=== PATIENT | female | born 1990 | race Caucasian/White ===

== ENCOUNTER → 2019-01-27 | Outpatient (CLI) | payer OTHER ==
[~2019-01-27] MED LIST: BIRTH CONTROL PO; KEFLEX500 MG PO; MEDROLDOSEPACK PO; ZOFRAN ODT4 MG PO
== END ==
LOC: M.ULTRA 13:46
DX: N83.202 Unspecified ovarian cyst, left side (principal); K80.80 Other cholelithiasis without obstruction

== ENCOUNTER → 2019-09-09 | Outpatient (CLI) | payer OTHER | LOC: M.ULTRA 11:14 | DX: N60.02 Solitary cyst of left breast (principal); Z80.3 Family history of malignant neoplasm of breast ==

== ENCOUNTER → 2021-03-27 | Outpatient (CLI) | payer OTHER | LOC: M.CT 11:06 | PROVIDERS: ATTEND Family Medicine | DX: R06.02 Shortness of breath (principal); R07.89 Other chest pain ==

== ENCOUNTER → 2021-04-04 | Outpatient (CLI) | payer OTHER ==
[2021-04-06 19:06] LABS: ANA INTERPRETATION Positive (())
== END ==
LOC: M.LAB 12:15
PROVIDERS: ATTEND Registered Nurse
DX: R07.89 Other chest pain (principal); R06.00 Dyspnea, unspecified

== ENCOUNTER 2021-05-09 17:26 | Observation (INO) | payer OTHER ==
[~2021-05-09] VITALS: Ht 172.7 cm; Wt 86.2 kg
[2021-05-09] MEDS ORDERED: TOPROL XL25 MG PO (17:31)
[2021-05-09 20:02] LABS: ABSOLUTE BASOPHILS 0.1 thou/uL (0.0-0.2); ABSOLUTE EOSINOPHILS 0.3 thou/uL (0.0-0.7); ABSOLUTE LYMPHOCYTES 1.7 thou/uL (0.8-5.3); ABSOLUTE MONOCYTES 0.6 thou/uL (0.0-1.2); ABSOLUTE NEUTROPHILS 4.5 thou/uL (1.6-8.1); BASOPHILS 1.1 %; EOSINOPHILS 3.7 %; HEMATOCRIT 34.2 % (37.0-47.0); HEMOGLOBIN 11.1 gm/dL (12.0-15.0); LYMPHOCYTES 24.2 %; MCH 24.5 pg (26.0-34.0); MCHC 32.3 g/dL (28.0-37.0); MCV 75.8 fL (80.0-100.0); MONOCYTES 8.3 %; MPV 7.5 fl. (7.2-11.1); NUCLEATED RBCS 0 /100WBC; PLATELET COUNT* 249 thou/uL (150-400); POLYS 62.7 %; RBC 4.51 mil/uL (4.20-5.00); RDW-CV 15.3 % (10.5-14.5); WBC 7.2 thou/uL (4.0-11.0)
[2021-05-09 20:14] LABS: CALCIUM 8.5 mg/dL (8.5-10.1); CREATININE 0.9 mg/dL (0.6-1.3); POTASSIUM 3.3 mmol/L (3.5-5.1)
[2021-05-09 20:16] LABS: APTT 26.8 Seconds (25.0-31.3); PROTIME 10.5 Seconds (9.20-11.50)
[2021-05-09 20:24] LABS: ALBUMIN 3.8 g/dL (3.4-5.0); TOTAL BILIRUBIN 0.2 mg/dL (<0.1-1.0)
[2021-05-10] VITALS (12 sets, daily range): BP systolic 107–130; BP diastolic 52–72
[2021-05-10 04:01] LABS: CHOLESTEROL 119 mg/dL (<200); HDL CHOLESTEROL 58 mg/dL (>40); LDL CHOLESTEROL 52 mg/dL (<100); TC:HDL 2.1 Ratio (Not establshd); TRIGLYCERIDE 47 mg/dL (<150); VLDL 9 mg/dL (<40)
[2021-05-10 04:03] LABS: SERUM ASSESSMENT CLEAR
--- NOTE | 2021-05-10 11:18 | EKG ---
[place] [address] ELECTROCARDIOGRAM REPORT Name: YUSEF SOLIZ Room: [address]#: [id number] Admission: 05/09/21 Attend Phys: Luis M Nunez, Discharge: Date of : 88 Date of Service: 05/09/21 173 Report #: [id number] THIS REPORT FOR: //name// [facility] ED Test Date: 2021-05-09 Test Time: 17:30:33 Pat Name: YUSEF SOLIZ Department: Room: [facility] Gender: F Administrative Professional: LUZ : 1990 Requested By: Susy Dawn Order Number: [id number] MD: Arjun García Measurements Intervals [place] Rate: 103 P: 83 LA: 157 QRS: 74 QRSD: 74 T: -49 QT: 358 QTc: 469 Interpretive Statements Sinus tachycardia Probable left atrial enlargement Nonspecific T abnormalities, diffuse leads Borderline prolonged QT interval No previous ECG available for comparison Electronically Signed On 05-10-2021 11:17:56 INTERVENTIONAL TECH by Arjun García [email or web address] <ELECTRONICALLY SIGNED> By: Arjun García MD, FAC 05/10/21 1117 1730 1730 Arjun García MD, [facility] /EPI
--- NOTE | 2021-05-10 12:52 | CARD ---
[address] [address] CARDIAC CATH REPORT Name: YUSEF SOLIZ Zara Room: [address] Mk#: [id number] Admission: 05/09/21 Attend Phys: Luis M Nunez MD Discharge: Date of : 88 Report #: [id number] THIS REPORT FOR: cc: Casey Gee MD [facility] Casey Gee MD [facility] Luis M Nunez MD [facility] ~ APPROVED REPORT Study performed: 05/10/2021 08:24:02 Patient Details Patient Status: ED Room #: The patient is a 30 year-old female Event Personnel Luis M Nunez Color Weigher, Anette Armendariz RN RN, Loi Hartley RTR Scrub, Mayr Wall RTR Monitor Procedures Performed Art Access - R radial artery Left Heart Cath w/or w/o Coronaries C Hemostasis with Hemoband Admission/Lab Medications/Medications given during procedure Lidocaine Subcut 5 ml, Nitroglycerin IA 400 mcg, Verapamil IA 5 mg, Oxygen Nasal cannula 2 l per min, 0.9% Sodium Chloride IV 75 ml per hr Procedure Narrative The patient was brought emergently to the Cardiac Catheterization Laboratory and was prepped and draped in a sterile manner. The right wrist was infiltrated with 2% Lidocaine subcutaneous anesthesia. IV conscious sedation was used throughout procedure with appropriate monitoring and was performed in the presence of a registered nurse who was an independent trained observer other than the physician performing the procedure. A Slender Glidesheath sheath was inserted into the right radial artery. Coronary angiography was performed using coronary diagnostic catheters. The right coronary system was accessed and visualized with a Diagnostic 6 Fr Tate catheter. The left coronary system was accessed and visualized with a Diagnostic 6 Fr Tate catheter. The left ventricle was accessed and visualized with a Diagnostic 6 Fr Tate catheter. Left ventricular/Aortic Valve gradient assessed via catheter pullback. Closure device was deployed with a Fr Vasc-Band Reg 24cm. [place] [address] CARDIAC CATH REPORT Name: YUSEF SOLIZ Room: [address]#: [id number] Admission: 05/09/21 Attend Phys: Luis M Nunez MD Discharge: Date of : 88 Report #: [id number] well and there were no complications associated with the procedure. There was no hematoma. Intraoperative Conscious Sedation Sedation start time: 09:05 Case end Time: 09:16 Fentanyl 25 mcg Versed 2 mg Dose: 345 mGy Contrast Type and Amount: Visipaque 60 mL Diagnostic Cath Left Main The left main is essentially a common os without disease or stenosis. LAD The left anterior descending coronary artery is normal in its proximal mid and distal portion. Diagonal 1 A small in caliber first diagonal branch is normal. Diagonal 2 The second diagonal branch is normal. Diagonal 3 A small caliber third diagonal branch is normal. Circumflex The circumflex coronary artery is normal in its proximal mid and distal portion. OM1 The first obtuse marginal branch is normal. OM2 The second obtuse marginal branch is normal. OM3 A branched third obtuse marginal branch is normal. Right Coronary The right coronary artery is normal in its proximal mid and distal portion. R PDA The right PDA is normal. RPLV A small right posterior lateral branch is normal. Left Ventriculography Left Ventriculography was not performed. Hemodynamics The aortic pressure is 127/80 mmHg with a mean of 103 mmHg. The left ventricular pressure is 124/1 mmHg with a mean of mmHg. The left ventricular end diastolic pressure is 10 mmHg. Conclusion 1. Normal coronary arteries. 2. Normal left ventricular [place] [address] CARDIAC CATH REPORT Name: HEYDIYUSEF [address] [id number] Admission: 05/09/21 Attend Phys: Luis M Nunez MD Discharge: Date of : 88 Report #: [id number] Recommendations 1. Continue current medical management. <ELECTRONICALLY SIGNED> By: Luis M Nunez MD, [facility] 05/10/21 1252 1252 [id number] Nune[facility] MD, FACC /INF
--- NOTE | 2021-05-12 10:03 | H ---
[place] [address] HISTORY AND PHYSICAL Name: YUSEF SOLIZ Room: [address] [address] ADM Dilan Mk#: [id number] Admission: 05/09/21 Attend Phys: Luis M Nunez MD Discharge: Date of : 88 Report #: [id number] THIS REPORT FOR: cc: Casey Gee MD [facility] Casey Gee MD [facility] Luis M Nunez MD [facility] ~ cc: Kaylin Granda DO, Laura Ferguson, CHELSY ADMIT DATE: 05/09/2021 ADMISSION HISTORY AND PHYSICAL INDICATION: Chest discomfort and abnormal stress test. HISTORY OF PRESENT ILLNESS: The patient is a 30-year-old white female with the only significant cardiac risk factors are family history of coronary artery disease and remote tobacco use. She denies any history of hypertension, dyslipidemia, or diabetes. The patient had a stress echocardiogram yesterday at her Cardiology office for further evaluation of chest pressure, tightness and tachycardia. The stress test was abnormal in the EKG portion. The echo portion appeared relatively normal. The patient did have the onset of chest pain at peak exercise that persisted for more than 15 minutes post-testing. The patient presents for further evaluation and possible invasive evaluation. PAST MEDICAL HISTORY: 1. Cholecystectomy. 2. Bilateral knee surgeries. 3. Two pregnancies, one complicated with some bleeding issues. 4. Abnormal stress test. 5. Tonsillectomy. CURRENT MEDICATIONS: Metoprolol succinate 25 mg daily. ALLERGIES: TORADOL AND PENICILLIN. SOCIAL HISTORY: The patient quit smoking remotely. She does not drink alcohol. She is . She has 2 children. REVIEW OF SYSTEMS: As per HPI, otherwise, unremarkable. PHYSICAL EXAMINATION: VITAL SIGNS: Stable. Blood pressure 108/69, pulse 81. Telemetry shows sinus rhythm. GENERAL: This is a pleasant, healthy appearing young [place] [address] HISTORY AND PHYSICAL Name: YUSEF SOLIZ Room: [address]#: [id number] Admission: 05/09/21 Attend Phys: Luis M Nunez MD Discharge: Date of : 88 Report #: [id number] HEENT: Head is normocephalic, atraumatic. Extraocular muscles intact. Mucous membranes are moist. NECK: Shows no jugular venous distention. There are no carotid bruits. CHEST: Reveals clear lung gamez without wheezes, rales or rhonchi. CARDIAC: Reveals a regular rhythm. Normal S1 and S2. I do not appreciate gallop or murmur. ABDOMEN: Reveals normal bowel sounds. The abdomen is soft, nontender. EXTREMITIES: Shows no edema. Peripheral pulses 2+ and palpable. SKIN: Warm and dry. LABORATORY DATA: Labs are reviewed. Sodium 142, potassium 3.3, chloride 105, bicarb 26, BUN 7, creatinine 0.9, serum glucose 89. LFTs within normal limits. Troponin is unremarkable. LDL cholesterol 52. Coags within normal limits. White blood cell count 7.8; hemoglobin 11.1; MCV 75.8; platelet count 249,000. Chest x-ray shows no acute cardiopulmonary abnormality. DIAGNOSTIC DATA: A 12-lead EKG shows sinus rhythm without acute ST or T-wave abnormality. IMPRESSION AND RECOMMENDATIONS: 1. Chest pain with abnormal stress test. Plan, coronary angiography. Further intervention pending those results. 2. Family history of coronary artery disease. 3. Remote history of tobacco use. 4. Anemia with indices to suggest iron deficiency. <ELECTRONICALLY SIGNED> By: Luis M Nunez MD, FACC 05/12/21 1003 0749 [id number] Nunez MD, FACC /nt
--- NOTE | 2021-05-12 10:03 | D ---
[facility] [address] [place] [address] DISCHARGE SUMMARY Name: YUSEF SOLIZ Room: [address] Mk#: [id number] Admission: 05/09/21 Attend Phys: Luis M Nunez MD Discharge: Date of : 88 Report #: [id number] THIS REPORT FOR: cc: Casey Gee MD [facility] Casey Gee MD [facility] Luis M Nunez MD [facility] ~ cc: Hernesto Gee MD [facility] DATE OF DISCHARGE: 05/10/2021 DISCHARGE DIAGNOSES: 1. Chest pain. 2. Abnormal stress test. 3. Family history of coronary artery disease. 4. Anemia suggestive of iron deficiency. 5. Remote history of tobacco use. PROCEDURES DURING HOSPITALIZATION: 1. Left heart catheterization. 2. Coronary angiography. HOSPITAL COURSE: The patient was brought to the hospital after having prolonged chest pain after stress testing on . The patient ruled out for myocardial infarction. The patient underwent coronary angiography for further evaluation that showed normal coronary arteries. Left ventricular end-diastolic pressure was normal at 10 mmHg. Left ventricular systolic function was noted to be normal on her stress echocardiogram. The patient had been started on metoprolol succinate 25 mg daily for some borderline tachycardia prior to hospitalization. This was her only discharge medication. DISPOSITION: The patient will follow up with primary physician within the month. Follow up with Cardiology in 1 month. <ELECTRONICALLY SIGNED> By: Luis M Nunez MD, FACC 05/12/21 1003 1518 [id number] Catalina Nunez MD, FAC /nt
== END 2021-05-10 12:06 | disposition home or self-care (01) ==
LOC: M.ERS 17:26 → M.TBA-ER 20:14 → M.TBA-CV 05-11 13:24 → M.TBA-ER 05-11 13:24
PROVIDERS: Physician Assistant; ADMIT Internal Medicine Cardiovascular Disease; ATTEND Internal Medicine Cardiovascular Disease
DX: R07.89 Other chest pain (principal); Z20.822 Contact with and (suspected) exposure to COVID-19; R94.39 Abnormal result of other cardiovascular function study; D64.9 Anemia, unspecified; Z87.891 Personal history of nicotine dependence; Z79.899 Other long term (current) drug therapy; Z82.49 Family history of ischemic heart disease and other diseases of the circulatory system